=== PATIENT | female | born 1980 | race Caucasian/White ===

== ENCOUNTER 2019-05-16 12:05 | Emergency (ER) | payer OTHER, SELFPAY ==
[2019-05-16 12:10] VITALS: BP 122/74; PULSE 110; RESP 24; TEMP 37.8; O2SAT 99
--- NOTE | 2019-05-16 12:19 | ED.URI ---
HPI - URI/Sore Throat General Chief Complaint: Upper Respiratory Infection Stated Complaint: cough and chest congest w/chills Time Seen by Provider: 05/16/19 12:20 Source: patient and RN notes reviewed Mode of arrival: ambulatory Limitations: no limitations History of Present Illness HPI Narrative: 39-year-old female who presents to [facility] care with complaints of 2 days of cough, chills, fevers, nasal congestion with drainage. Patient states that she has had some sinus drainage for the past 2 weeks but symptoms have increased in the past 2 days to include cough, which has been so hard and frequent that her chest hurts, fevers, body aches.Patient states that she has had yellow sputum with some blood tinged mucous. Patient states that she has been taking Ibuprofen OTC for her symptoms. MD elicited complaint: fever, cough, rhinorrhea and nasal congestion Onset (ago): day(s) (2) Consistency: progressively worsening Severity: moderate Description of mucous: yellow and other (streaks of blood at times) Able to tolerate fluids by mouth: Yes Exacerbating factors: swallowing, exertion and deep breaths Relieving factors: nothing Context: sick contacts Associated symptoms: fever, chills, myalgias, rhinorrhea, nasal congestion, sore throat and cough Treatments prior to arrival: ibuprofen Related Data Home Medications Medication Instructions Recorded Confirmed Mirena 05/16/19 levothyroxine 05/16/19 topiramate 05/16/19 Allergies Allergy/AdvReac Type Severity Reaction Status Date / Time codeine Allergy Severe HIVES Verified 05/16/19 12:32 poison sara extract Allergy Unknown Hives / Verified 02/18/18 15:34 Red Face poison oak extract Allergy Unknown Hives / Verified 02/18/18 15:34 Red Face poison sumac extract Allergy Unknown Hives / Verified 02/18/18 15:34 Red Face Review of Systems Review of Systems: Narrative: CONSTITUTIONAL:Positive fever, chills, or sweats. EYES: Denies visual changes, redness, or discharge. ENT: positive rhinorrhea, congestion, sore throat, no otalgia. CARDIOVASCULAR: reports chest pain with cough,no palpitations, or edema. RESPIRATORY: positive cough no dyspnea. GASTROINTESTINAL: Denies abdominal pain, nausea, vomiting, or diarrhea. GENITOURINARY: Denies dysuria or hematuria. SKIN: Denies rash or itching. MUSCULOSKELETAL: Denies back pain, joint pain, or myalgia. NEUROLOGIC: Denies headache, numbness, or weakness. PSYCHIATRIC:positive anxiety or depression. All systems reviewed & are unremarkable except as noted in HPI and below PMFSH Past Medical History Medical History (Updated 05/17/19 @ 00:00 by Rohith Daemon) Anxiety and depression Bipolar 1 disorder Hypothyroid Migraines Surgical History Surgical History (Updated 05/16/19 @ 12:28 by Niki Kat NP) H/O arthroscopy of right knee History of cervical spinal surgery S/P foot surgery, right Social History Social History Smoking status: Former smoker Smoking end date: 03/11/10 Alcohol intake: never Gender identity (if verbalized by the patient): Female Comments At time of signature, agree with nursing past medical, surgical, social history. There is no relevant family history pertinent to the presenting complaint Exam Narrative: Exam Narrative: GENERAL: ill-appearing, well-nourished, and in no acute distress. HEAD: Normocephalic, atraumatic. EYES: PERRLA and EOMI. ENT: Nares red, yellow tinged rhinorrhea no epistaxis. Mucous membranes moist. TMs normal with good light reflex, throat red no exudates or lesions, mild tonsillar swelling NECK: Supple.no lymphadenopathy CHEST: Clear to auscultation. No respiratory distress. Cough SAO2 99% on room air HEART: Regular rate and rhythm. No murmur heard. Normal peripheral pulses. ABDOMEN: Soft, nontender, nondistended, normal active bowel sounds. EXTREMITIES: Normal range of motion. No edema. SKIN: Warm, dry, no rash. NEURO: No focal deficits. Alert and orien
== END 2019-05-16 12:59 | disposition home or self-care (01) ==
PROVIDERS: Emergency Provider Registered Nurse
DX: J11.1 Influenza due to unidentified influenza virus with other respiratory manifestations (principal)
CPT/HCPCS: 87081; 87804; 87880; 99213; G0463

== ENCOUNTER 2019-05-27 15:50 | Emergency (ER) | payer OTHER, SELFPAY ==
--- NOTE | ~2019-05-27 | XR_ITS ---
EXAMINATION: XR chest 2V DATE: 05/27/2019 16:17 INDICATION: Cough and fever TECHNIQUE: PA and lateral views of the chest are obtained. COMPARISON: 05/09/2017 FINDINGS: The lungs are free of acute opacities. There is no pleural effusion or pneumothorax. The ca rdiomediastinal silhouette is normal. There is mild thoracic spondylosis. IMPRESSION: 1. No acute cardiopulmonary abnormality. Reviewed, dictated and finalized at location A.
[2019-05-27 16:01] VITALS: RESP 18
[2019-05-27 16:11] VITALS: BP 146/68; PULSE 93; RESP 20; TEMP 37.1; O2SAT 100
--- NOTE | 2019-05-27 17:40 | ED.URI ---
HPI - URI/Sore Throat General Chief Complaint: Upper Respiratory Infection Stated Complaint: cough, congestion, fever, sore throat, had flu A Time Seen by Provider: 05/27/19 16:12 History of Present Illness HPI Narrative: 39-year-old female presents emergency department with ongoing symptoms after diagnosis of influenza A 2 weeks ago. Patient reports continued cough, sore throat, feeling exhausted, voice loss. She reports other members of her family had influenza A as well but have all recovered. She denies any prior travel or exposure to COVID-19 within the past several weeks. She is taking [id number] cough medication and ibuprofen without relief. She denies any fever or chills or new symptoms. She called her primary care doctor for reevaluation today and was sent to the emergency department. Related Data Home Medications Medication Instructions Recorded Confirmed Mirena 05/16/19 levothyroxine 05/16/19 topiramate 05/16/19 Allergies Allergy/AdvReac Type Severity Reaction Status Date / Time codeine Allergy Severe HIVES Verified 05/27/19 16:04 poison sara extract Allergy Unknown Hives / Verified 05/27/19 16:04 Red Face poison oak extract Allergy Unknown Hives / Verified 05/27/19 16:04 Red Face poison sumac extract Allergy Unknown Hives / Verified 05/27/19 16:04 Red Face Review of Systems Review of Systems: Narrative: CONSTITUTIONAL: Denies fever, chills, or sweats. EYES: Denies visual changes, redness, or discharge. ENT: Reports rhinorrhea, sore throat. CARDIOVASCULAR: Denies chest pain, palpitations, or edema. RESPIRATORY: Reports cough with coughing spells , denies shortness of breath. GASTROINTESTINAL: Denies abdominal pain, nausea, vomiting, or diarrhea. GENITOURINARY: Denies dysuria or hematuria. SKIN: Denies rash or itching. MUSCULOSKELETAL: Denies back pain, joint pain, or myalgia. NEUROLOGIC: Denies headache, numbness, or weakness. PSYCHIATRIC: Denies anxiety or depression. [facility] Past Medical History Medical History (Updated 05/27/19 @ 18:03 by ZARINA Lundy) Anxiety and depression Bipolar 1 disorder Hypothyroid Migraines Surgical History Surgical History (Updated 05/16/19 @ 12:28 by Niki L. North, [employer]) H/O arthroscopy of right knee History of cervical spinal surgery S/P foot surgery, right Social History Social History Smoking status: Former smoker Smoking end date: 03/11/10 Alcohol intake: never Gender identity (if verbalized by the patient): Female Exam Narrative: Exam Narrative: GENERAL: Appears uncomfortable HEAD: Normocephalic, atraumatic. EYES: sclera anicteric ENT: Nares clear, clear bilat nasal rhinorrhea, no epistaxis. Mucous membranes moist. Posterior pharynx erythematic, no exudates, no palatal petechiae NECK: Supple.no cervical LAD CHEST: Clear to auscultation. No respiratory distress. HEART: Regular rate and rhythm. No murmur heard. Normal peripheral pulses. ABDOMEN: Soft, nontender, nondistended, normal active bowel sounds. EXTREMITIES: Normal range of motion. No edema. SKIN: Warm, dry, no rash. NEURO: No focal deficits. Alert and oriented x3. PSYCH: Normal mood and affect. Course Vital Signs Vital signs: Vital Signs Respiratory Rate 18 05/27/19 16:01 Temperature 37.1 C 05/27/19 16:11 Pulse Rate 93 05/27/19 16:11 Respiratory Rate 20 05/27/19 16:11 Blood Pressure 146/68 H 05/27/19 16:11 Pulse Oximetry 100 05/27/19 16:11 MDM - URI/Sore Throat MDM Narrative Medical decision making narrative: Pt was diagnosed with influenza A 2 weeks ago along with several other family members. Patient reports that other family members have improved but she has not. Given chest x-ray without pneumonia or other acute process this is likely postinfectious cough. She remains afebrile and without new symptoms. Her main complaint today is ongoing cough. Patient had previously been given a prescription for Meggan
== END 2019-05-27 18:20 | disposition home or self-care (01) ==
DX: R05 Cough (principal); F41.9 Anxiety disorder, unspecified; F32.9 Major depressive disorder, single episode, unspecified; E03.9 Hypothyroidism, unspecified
CPT/HCPCS: 71046; 87804; 99283

== ENCOUNTER 2021-01-01 11:12 | Emergency (ER) | payer OTHER, SELFPAY ==
--- NOTE | ~2021-01-01 | XR_ITS ---
EXAMINATION: XR chest 2V DATE: 01/01/2021 11:48 INDICATION: Cough and shortness of breath TECHNIQUE: Frontal and lateral views of the chest are obtained COMPARISON: 05/27/2019 FINDINGS: The lungs are free of acute opacities. There is no pleural effusion or pneumothorax. The ca rdiomediastinal silhouette is normal. There is moderate thoracic spondylosis. IMPRESSION: 1. No acute cardiopulmonary abnormality. Reviewed, dictated and finalized at location A.
[2021-01-01 11:23] VITALS: BP 146/82; PULSE 95; RESP 16; TEMP 37.9; O2SAT 98
--- NOTE | 2021-01-01 11:49 | ED.GENADULT ---
HPI - General Adult General Chief complaint: Upper Respiratory Infection Stated complaint: Chest Congestion/Cough/Fever Time Seen by Provider: 01/01/21 11:49 Source: patient Mode of arrival: ambulatory Limitations: no limitations History of Present Illness HPI narrative: 40-year-old female patient presents to the [facility] with complaints of chest congestion, cough fever that started 3 days ago. 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 Patient states that yesterday her symptoms got increasingly worse with fever, chills cough and chest congestion. Patient is vaccinated for Covid with the Moderna. Related Data Home Medications Medication Instructions Recorded Confirmed Mirena 05/16/19 levothyroxine 05/16/19 topiramate 05/16/19 topiramate 50 mg PO BID 01/01/21 01/01/21 Allergies Allergy/AdvReac Type Severity Reaction Status Date / Time codeine Allergy Severe HIVES Verified 05/27/19 16:04 poison sara extract Allergy Unknown Hives / Verified 05/27/19 16:04 Red Face poison oak extract Allergy Unknown Hives / Verified 05/27/19 16:04 Red Face poison sumac extract Allergy Unknown Hives / Verified 05/27/19 16:04 Red Face Review of Systems Review of Systems: CONSTITUTIONAL: Positive fever, chills, denies sweats. EYES: Denies visual changes, redness, or discharge. ENT: Positive rhinorrhea, congestion, denies sore throat, or otalgia. CARDIOVASCULAR: Denies chest pain, palpitations, or edema. RESPIRATORY: Positive cough, denies dyspnea. GASTROINTESTINAL: Denies abdominal pain, nausea, vomiting, or diarrhea. GENITOURINARY: Denies dysuria or hematuria. SKIN: Denies rash or itching. MUSCULOSKELETAL: Denies back pain, joint pain, or myalgia. NEUROLOGIC: Positive headache, denies numbness, or weakness. PSYCHIATRIC: Denies anxiety or depression. [facility] Past Medical History Medical History Anxiety and depression Bipolar 1 disorder Hypothyroid Migraines Surgical History Surgical History H/O arthroscopy of right knee History of cervical spinal surgery S/P foot surgery, right Social History Social History Smoking status: Former smoker Smoking end date: 03/11/10 Alcohol intake: never Gender identity (if verbalized by the patient): Female Comments At the time of my signature I agree with nursing past medical history, surgical, social, and family history. There is no relevant family history pertinent to the presenting complaint. Exam Narrative: GENERAL: ill-appearing, well-nourished, and in no acute distress. HEAD: Normocephalic, atraumatic. EYES: PERRLA and EOMI. ENT: Nares clear, no rhinorrhea or epistaxis. Mucous membranes moist. Posterior pharynx no erythema, tonsillar edema, exudates or lesions present. Bilateral TMs are clear. NECK: Supple. No lymphadenopathy CHEST: Clear to auscultation. No respiratory distress. HEART: Regular rate and rhythm. No murmur heard. Normal peripheral pulses. ABDOMEN: Soft, nontender, nondistended, normal active bowel sounds. EXTREMITIES: Normal range of motion. No edema. SKIN: Warm, dry, no rash. NEURO: No focal deficits. Alert and oriented x3. Course Vital Signs Vital signs: Vital Signs Temperature 37.9 C H 01/01/21 11:23 Pulse Rate 95 01/01/21 11:23 Respiratory Rate 16 01/01/21 11:23 Blood Pressure 146/82 H 01/01/21 11:23 Pulse Oximetry 98 01/01/21 11:23 Temperature 37.9 C H 01/01/21 11:23 Pulse Rate 95 01/01/21 11:23 Respiratory Rate 16 01/01/21 11:23 Blood Pressure 146/82 H 01/01/21 11:23 Pulse Oximetry 98 01/01/21 11:23 Vital signs reviewed The patient has been informed that they may have pre-hypertension or Hypertension based on a BP reading in the department. I recommend t
--- NOTE | 2021-01-01 12:04 | ED.GENADULT ---
HPI - General Adult General Chief complaint: Upper Respiratory Infection Stated complaint: Chest Congestion/Cough/Fever Time Seen by Provider: 01/01/21 11:49 Source: patient Mode of arrival: ambulatory Limitations: no limitations Related Data Home Medications Medication Instructions Recorded Confirmed Mirena 05/16/19 levothyroxine 05/16/19 topiramate 05/16/19 topiramate 50 mg PO BID 01/01/21 01/01/21 Allergies Allergy/AdvReac Type Severity Reaction Status Date / Time codeine Allergy Severe HIVES Verified 05/27/19 16:04 poison sara extract Allergy Unknown Hives / Verified 05/27/19 16:04 Red Face poison oak extract Allergy Unknown Hives / Verified 05/27/19 16:04 Red Face poison sumac extract Allergy Unknown Hives / Verified 05/27/19 16:04 Red Face PMFSH Past Medical History Medical History Anxiety and depression Bipolar 1 disorder Hypothyroid Migraines Surgical History Surgical History H/O arthroscopy of right knee History of cervical spinal surgery S/P foot surgery, right Social History Social History Smoking status: Former smoker Smoking end date: 03/11/10 Alcohol intake: never Gender identity (if verbalized by the patient): Female Course Reevaluation(s) Reevaluation #1: Chest x-ray is clear as well as her breath sounds are clear. Discussed with patient the we will go ahead and discharge her home she can use symptomatic relief for [id number] at this time however I would discuss with her doctor if she might be a candidate for monoclonal antibodies if she is at high risk at all for further treatment. Patient is aware the plan of care at this time denies any other questions or concerns. Date: 01/01/21 Time: 12:04 Vital Signs Vital signs: Vital Signs Temperature 37.9 C H 01/01/21 11:23 Pulse Rate 95 01/01/21 11:23 Respiratory Rate 16 01/01/21 11:23 Blood Pressure 146/82 H 01/01/21 11:23 Pulse Oximetry 98 01/01/21 11:23 Temperature 37.9 C H 01/01/21 11:23 Pulse Rate 95 01/01/21 11:23 Respiratory Rate 16 01/01/21 11:23 Blood Pressure 146/82 H 01/01/21 11:23 Pulse Oximetry 98 01/01/21 11:23 Medical Decision Making Vital Signs Vital Signs: Vital Signs Temperature 37.9 C H 01/01/21 11:23 Pulse Rate 95 01/01/21 11:23 Respiratory Rate 16 01/01/21 11:23 Blood Pressure 146/82 H 01/01/21 11:23 Pulse Oximetry 98 01/01/21 11:23 Temperature 37.9 C H 01/01/21 11:23 Pulse Rate 95 01/01/21 11:23 Respiratory Rate 16 01/01/21 11:23 Blood Pressure 146/82 H 01/01/21 11:23 Pulse Oximetry 98 01/01/21 11:23 Lab Data Lab results narrative: [address] [id number] XRay ReportSigned Patient: Talia Corrales LDOB: 1980MR#: [id number]/Sex: 40 / FAcct:[id number]: EXPBETH ADM Date: 01/01/21Attending Dr: Ordering Physician: Jessika Candelaria APN Date of Service: 01/01/21 Procedure(s): XR chest 2V Accession Number(s): [id number] cc: Jessika Candelaria APN~ EXAMINATION: XR chest 2V DATE: 01/01/2021 11:48 INDICATION: Cough and shortness of breath TECHNIQUE: Frontal and lateral views of the chest are obtained COMPARISON: 05/27/2019 FINDINGS: The lungs are free of acute opacities. There is no pleural effusion or pneumothorax. The cardiomediastinal silhouette is normal. There is moderate thoracic spondylosis. IMPRESSION: 1. No acute cardiopulmonary abnormality. Reviewed, dictated and finalized at location A. Dictated By: Zaid Barbosa MD 01/01/21 1156 Signed By: <Electronically signed by Zaid Barbosa MD in [place]>01/01/21 1200 Discharge Plan Discha
== END 2021-01-01 12:11 | disposition home or self-care (01) ==
PROVIDERS: Emergency Provider Nurse Practitioner Family
DX: U07.1 COVID-19 (principal); Z87.891 Personal history of nicotine dependence
CPT/HCPCS: 71046; 87426; 99213; C9803; G0463

== ENCOUNTER 2021-12-06 13:11 | Emergency (ER) | payer OTHER, SELFPAY ==
--- NOTE | ~2021-12-06 | XR_ITS ---
EXAMINATION: XR chest 2V 12/06/2021 13:30 INDICATION: Cough. Midline chest pain. Congestion. PROCEDURE: 2 view chest COMPARISON: Comparison to multiple prior studies sequentially, with oldest reviewed study dated 03/2017. FINDINGS: The lungs are clear. The cardiomediastinal silhouette is within normal limits. There are no pleural effusions. There is no pneumothorax suspected. IMPRESSION: 1: NO ACUTE CARDIOPULMONARY DISEASE. Reviewed, dictated and finalized at location B.
[2021-12-06 13:13] VITALS: BP 134/78; PULSE 56; RESP 16; TEMP 36.6; O2SAT 100
[2021-12-06 13:20] VITALS: BP 142/93; PULSE 66; RESP 13; O2SAT 100; O2SAT 98
--- NOTE | 2021-12-06 13:22 | ED.URI ---
HPI - URI/Sore Throat General Chief Complaint: Upper Respiratory Infection Stated Complaint: chest pain with movement/coughing Time Seen by Provider: 12/06/21 13:15 History of Present Illness HPI Narrative: 41-year-old female presents the emergency room for evaluation of chest tightness that is worse when she moves and when attempting to take a deep breath. Patient states the symptoms began this morning. Endorses a recent history of sinus congestion, postnasal drip, nonproductive cough, and sneezing. Patient states she was taking [id number] Nataliya-Brainard along with ibuprofen to alleviate her symptoms. 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 Denies fever. Denies chest pain, dizziness, nausea or vomiting or radiating pain. Related Data Home Medications Medication Instructions Recorded Confirmed Mirena 05/16/19 levothyroxine 112 mcg PO DAILY 05/16/19 01/01/21 topiramate 100 mg PO BID 05/16/19 01/01/21 topiramate 50 mg tablet 50 mg PO BID 01/01/21 01/01/21 Allergies Allergy/AdvReac Type Severity Reaction Status Date / Time codeine Allergy Severe HIVES Verified 12/06/21 13:21 poison sara extract Allergy Unknown Hives / Verified 12/06/21 13:21 Red Face poison oak extract Allergy Unknown Hives / Verified 12/06/21 13:21 Red Face poison sumac extract Allergy Unknown Hives / Verified 12/06/21 13:21 Red Face Review of Systems Review of Systems: CONSTITUTIONAL: Denies fever, chills, or sweats. EYES: Denies visual changes, redness, or discharge. ENT: Reports rhinorrhea, congestion, sore throat CARDIOVASCULAR: Reports chest tenderness RESPIRATORY: Reports cough GASTROINTESTINAL: Denies abdominal pain, nausea, vomiting, or diarrhea. GENITOURINARY: Denies dysuria or hematuria. SKIN: Denies rash or itching. MUSCULOSKELETAL: Denies back pain, joint pain, or myalgia. NEUROLOGIC: Denies headache, numbness, dizziness, or weakness. PSYCHIATRIC: Denies anxiety or depression. [facility] Past Medical History Medical History Anxiety and depression Bipolar 1 disorder Hypothyroid Migraines Surgical History Surgical History H/O arthroscopy of right knee History of cervical spinal surgery S/P foot surgery, right Social History Social History Smoking status: Former smoker Smoking end date: 03/11/10 Alcohol intake: never Gender identity (if verbalized by the patient): Female Exam Narrative: GENERAL: Well-appearing, well-nourished, no physical limitations, and in no acute distress. HEAD: Normocephalic, atraumatic. EYES: Conjunctivae normal, PERRLA and EOMI. ENT: External nose normal, Nares clear, no rhinorrhea or epistaxis. Mucous membranes moist. Oropharynx without tonsillar hypertrophy exudate or other lesions. External ears normal, bilateral TMs normal bilaterally NECK: Supple. No adenopathy or masses. CHEST: Clear to auscultation. No respiratory distress. No wheezes rales or rhonchi. No tenderness. HEART: Regular rate and rhythm. No murmur heard. Normal peripheral pulses. EXTREMITIES: Normal range of motion. No edema. No clubbing or cyanosis SKIN: Warm, dry, no rash. No noted wounds NEURO: No focal deficits. Alert and oriented x3. MAEW. CN's II-XI intact bilaterally, normal gait PSYCH: Cooperative. Normal mood and affect. Course Vital Signs Vital signs: Vital Signs Temperature 36.6 C 12/06/21 13:13 Pulse Rate 56 L 12/06/21 13:13 Respiratory Rate 16 12/06/21 13:13 Blood Pressure 134/78 12/06/21 13:13 Pulse Oximetry 100 12/06/21 13:13 Oxygen Delivery Room Air 12/06/21 13:13 Temperature 36.6 C 12/06/21 13:13 Pulse Rate 66 12/06/21 15:40 Respiratory Rate 20 12/06/21 15:40 Blood Pressure 118/72 12/06/21 14:36 Pulse Oxime
[2021-12-06 14:36] VITALS: BP 118/72; PULSE 53; RESP 21; O2SAT 99
[2021-12-06 15:08] LABS: Influenza A QL RT-PCR Negative (Negative); Influenza B QL RT-PCR Negative (Negative); SARS-CoV-2 RNA PCR Negative
[2021-12-06] MEDS: ALBUTEROL SULFATE NEB 2.5 MG/3 ML INH INHALATION (15:21)
[2021-12-06] MEDS: IPRATROPIUM BR 0.02% INH SOLN 0.5 MG/2.5 ML VIAL INHALATION (15:21)
[2021-12-06 15:23] VITALS: PULSE 54; RESP 16
[2021-12-06 15:40] VITALS: PULSE 66; RESP 20
[2021-12-06 16:03] VITALS: BP 118/69; PULSE 68; RESP 20; TEMP 36.8; O2SAT 99
== END 2021-12-06 16:04 | disposition home or self-care (01) ==
PROVIDERS: Emergency Provider Nurse Practitioner Family
DX: J06.9 Acute upper respiratory infection, unspecified (principal); R09.1 Pleurisy; Z20.822 Contact with and (suspected) exposure to COVID-19; Z87.891 Personal history of nicotine dependence; E03.9 Hypothyroidism, unspecified
CPT/HCPCS: 71046; 87502; 94640; 96372; 99283; C9803; J1100; U0003; U0005

== ENCOUNTER 2022-02-21 09:18 | Emergency (ER) | payer OTHER, SELFPAY ==
[2022-02-21 09:25] VITALS: BP 131/85; PULSE 82; RESP 16; TEMP 37.7; O2SAT 99
--- NOTE | 2022-02-21 09:53 | ED.EYEPROB ---
HPI - Eye Problem General Chief complaint: Eye Problems Stated complaint: Eye Problem Time Seen by Provider: 02/21/22 09:43 Source: patient Mode of arrival: ambulatory Limitations: no limitations History of Present Illness HPI Narrative: 41-year-old female presented for complaint of left eye irritation and drainage. She states it was crusted shut this morning. 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 Patient denies photophobia, vision changes, headache or dizziness. She also endorses sinus congestion and postnasal drainage with a sore throat and cough over the last few days. She is not taking anything but tylenol for the symptoms. Denies shortness of breath, wheezing, nausea, vomiting, fever chills. MD chief complaint: eye pain Related Data Home Medications Medication Instructions Recorded Confirmed Mirena 05/16/19 levothyroxine 112 mcg PO DAILY 05/16/19 01/01/21 topiramate 100 mg PO BID 05/16/19 01/01/21 topiramate 50 mg tablet 50 mg PO BID 01/01/21 01/01/21 Allergies Allergy/AdvReac Type Severity Reaction Status Date / Time codeine Allergy Severe HIVES Verified 12/06/21 13:21 poison sara extract Allergy Unknown Hives / Verified 12/06/21 13:21 Red Face poison oak extract Allergy Unknown Hives / Verified 12/06/21 13:21 Red Face poison sumac extract Allergy Unknown Hives / Verified 12/06/21 13:21 Red Face Review of Systems Review of Systems: ROS per HPI All systems reviewed & are unremarkable except as noted in HPI and below PMFSH Past Medical History Medical History Anxiety and depression Bipolar 1 disorder Hypothyroid Migraines Surgical History Surgical History H/O arthroscopy of right knee History of cervical spinal surgery S/P foot surgery, right Social History Social History Smoking status: Former smoker Smoking end date: 03/11/10 Alcohol intake: never Gender identity (if verbalized by the patient): Female Comments At time of signature, I have reviewed and agree with nursing past medical, surgical, social and family history unless otherwise noted. Please see nursing chart for further information. There is no relevant family history pertinent to the presenting complaint Exam Narrative: GENERAL: Well-appearing HEAD: Normocephalic, atraumatic. EYES: left conjunctival injection, mild yellow drainage; no eye lid swelling. EOMI. Lid eversion showed no FB ENT: Mucous membranes pink and moist. No rhinorrhea. TMs normal bilaterally. Throat normal. Uvula midline. CHEST: Clear to auscultation. HEART: Regular rate and rhythm. ABDOMEN: Soft, nontender, nondistended SKIN: Warm, dry, no rash. Normal skin turgor. NEURO: No focal deficits. Alert and oriented x3 Course Course Emergency Course: Patient is aware of diagnosis, understands and agrees to treatment plan. Anticipatory guidance given. Patient agrees to follow-up as directed and is aware of reasons to seek care at the emergency department. Portions of this record may have been created with voice recognition software Level of Care: Express Care Visit Vital Signs Vital signs: Vital Signs Temperature 99.8 F H 02/21/22 09:25 Pulse Rate 82 02/21/22 09:25 Respiratory Rate 16 02/21/22 09:25 Blood Pressure 131/85 02/21/22 09:25 Pulse Oximetry 99 02/21/22 09:25 Oxygen Delivery Room Air 02/21/22 09:25 Temperature 99.8 F H 02/21/22 09:25 Pulse Rate 82 02/21/22 09:25 Respiratory Rate 16 02/21/22 09:25 Blood Pressure 131/85 02/21/22 09:25 Pulse Oximetry 99 02/21/22 09:25 Oxygen Delivery Room Air 02/21/22 09:25 MDM - Eye Problem MDM Narrative Medical decision making narrative: treatment for bacterial conjunctivitis. Advised supportive measures for URI.
== END 2022-02-21 10:01 | disposition home or self-care (01) ==
PROVIDERS: Emergency Provider Nurse Practitioner Family; PCP Nurse Practitioner Family
DX: H10.9 Unspecified conjunctivitis (principal); Z87.891 Personal history of nicotine dependence; E03.9 Hypothyroidism, unspecified
CPT/HCPCS: 99213; G0463

== ENCOUNTER 2022-03-02 09:28 | Emergency (ER) | payer OTHER, SELFPAY ==
[2022-03-02 09:34] VITALS: BP 130/93; PULSE 94; RESP 26; TEMP 36.4; O2SAT 100
--- NOTE | 2022-03-02 09:58 | ED.URI ---
HPI - URI/Sore Throat General Chief Complaint: Upper Respiratory Infection Stated Complaint: sore throat, cough, chest pain,headache Time Seen by Provider: 03/02/22 09:55 Source: patient, RN notes reviewed and old records reviewed Mode of arrival: ambulatory Limitations: no limitations History of Present Illness HPI Narrative: 41 year old female who presents to [facility] with 2 week duration of illness which started with sore throat, nasal drainage and cough which was productive. Patient reports that cough has become tighter for the past few days with some body aches, is hoarse, can't lay down at night without coughing fits. Patient reports that she has noted some blood tinged sputum that clears. Patient reports that she has had COVID vaccinations and booster, has not had flu shot.Has been taking Tylenol and Ibuprofen and allergy medications. MD elicited complaint: cough, sore throat, rhinorrhea, nasal congestion and sinus pain Pertinent past history: seasonal allergies Pain scale (0-10): 6 Treatments prior to arrival: acetaminophen, ibuprofen and other (Allergy medication) Related Data Home Medications Medication Instructions Recorded Confirmed levothyroxine 13 mcg capsule mcg PO 03/02/22 Allergies Allergy/AdvReac Type Severity Reaction Status Date / Time codeine Allergy Severe HIVES Verified 03/02/22 09:36 poison sara extract Allergy Unknown Hives / Verified 03/02/22 09:36 Red Face poison oak extract Allergy Unknown Hives / Verified 03/02/22 09:36 Red Face poison sumac extract Allergy Unknown Hives / Verified 03/02/22 09:36 Red Face Review of Systems Review of Systems: CONSTITUTIONAL: Denies malaise, chills, sweats, or fever. EYES: Denies visual changes, redness, or discharge. ENT: Reports rhinorrhea, congestion, sinus pain,no otalgia positive sore throat, hoarseness CARDIOVASCULAR: Denies chest pain, palpitations, or edema. RESPIRATORY: Reports cough.? Denies dyspnea. GASTROINTESTINAL: Denies abdominal pain, nausea, vomiting, diarrhea SKIN: Denies rash or itching. MUSCULOSKELETAL:reports myalgia. NEUROLOGIC: reports headache. All systems reviewed & are unremarkable except as noted in HPI and below PMFSH Past Medical History Medical History Anxiety and depression Bipolar 1 disorder Hypothyroid Migraines Surgical History Surgical History H/O arthroscopy of right knee History of cervical spinal surgery S/P foot surgery, right Social History Social History Smoking status: Former smoker Smoking end date: 03/11/10 Alcohol intake: never Gender identity (if verbalized by the patient): Female Comments At time of signature, agree with nursing past medical, surgical, social and family history. There is no relevant family history pertinent to the presenting complaint Exam Narrative: GENERAL: Well-appearing, well-nourished, and in no acute distress. HEAD: Normocephalic EYES: PERRLA, conjunctivae clear ENT: Nares clear, turbinates edematous and erythematous, clear discharge. Mucous membranes moist. TM pearly lopez with dull light reflex bilaterally; no tragal tenderness. Oropharynx erythematous without lesions. Tonsils not enlarged and without exudate, no drooling, positive for hoarseness, no trismus, uvula midline.post nasal drainage and headache. NECK: Supple. No lymphadenopathy CHEST: Clear to auscultation, breath sounds equal. No wheezing, rhonchi, rales, or stridor. No respiratory distress, speaks in full sentences.harsh cough SAO2 100% on room air HEART: Regular rate and rhythm. No murmur heard. SKIN: Warm, dry, no rash. NEURO: Alert and oriented x3. PSYCH: Normal mood and affect Course Course Emergency Course: Patient is aware of diagnosis, understands and agrees to treatment plan.? A
== END 2022-03-02 10:13 | disposition home or self-care (01) ==
PROVIDERS: Emergency Provider Registered Nurse; PCP Nurse Practitioner Family
DX: J06.9 Acute upper respiratory infection, unspecified (principal); R05.9 Cough, unspecified; J02.9 Acute pharyngitis, unspecified; Z87.891 Personal history of nicotine dependence; E03.9 Hypothyroidism, unspecified
CPT/HCPCS: 99213; G0463

== ENCOUNTER → 2022-09-24 11:12 | Outpatient (CLI) | payer BC, SELFPAY ==
--- NOTE | ~2022-09-24 | MM_ITS ---
EXAMINATION: MM screening baltazar BI w mely HISTORY: Screening TECHNIQUE: Craniocaudal and mediolateral oblique 3-D tomosynthesis images were obtained and synthetic 2-D images were generated. CAD analysis was submitted and interpreted. COMPARISON: No prior mammogram is available for comparison at this institution. BREAST PARENCHYMAL COMPOSITION: There are scattered areas of fibroglandular density. FINDINGS: There is no evidence of suspicious mass, calcification, or architectural distortion to sugg est malignancy in either breast. There has been no suspicious interval change. IMPRESSION: 1. No mammographic evidence of malignancy. 2. Recommend routine screening mammography in one year. BI-RADS Category 1: Negative Reviewed, dictated and finalized at location A.
== END ==
PROVIDERS: PCP Nurse Practitioner Obstetrics & Gynecology; Visit Provider Nurse Practitioner Obstetrics & Gynecology
DX: Z12.31 Encounter for screening mammogram for malignant neoplasm of breast (principal)
CPT/HCPCS: 77063; 77067

== ENCOUNTER 2024-01-15 10:35 | Emergency (ER) | payer BC, SELFPAY ==
--- NOTE | ~2024-01-15 | CT_ITS ---
CT abdomen pelvis w con Ordering provider: Maura Giordano MD History: 43 years Female with . LLQ pain . Comparison: None. Technique: CT abdomen and pelvis with IV and without oral contrast. Automated exposure control and it erative reconstruction technique were employed. The dose-length product was 1014.86 mGy-cm. 100 mL Om nipaque 350 was given IV. Findings: VISUALIZED LOWER CHEST: Dependent atelectatic changes in the right lung base. UPPER ABDOMINAL ORGANS: Liver: Normal. Gallbladder: Normal. Spleen: Normal. Stomach/duodenum: Small sliding hiatus hernia. Pancreas: Normal. Adrenals: Small left adrenal adenoma. Kidneys: Tiny cyst in the left kidney lower pole. PELVIC ORGANS: The bladder is underfilled. Uterus: IUD is seen in the uterus.. Left ovarian cyst measuring 2.2 cm.. BOWEL AND MESENTERY: Colon: No evidence of diverticulitis. Fecal material is loaded in the colon. No evidence of appendici tis. Small Bowel: Normal. No obstruction. Peritoneum/mesentery: No free air or free fluid. No mesenteric lymphadenopathy. RETROPERITONEUM: Normal aorta. No retroperitoneal lymphadenopathy. MUSCULOSKELETAL: Superficial soft tissues: Small fat-containing umbilical hernia. Otherwise, The superficial soft tiss ues are normal. Bones: Degenerative disc disease at the level of L5-S1. Otherwise, Normal spine. Right sacroiliitis. IMPRESSION: 1. No evidence of appendicitis, diverticulitis or intestinal obstruction. 2. Left ovarian cyst. 3. Constipation. 4. Small sliding hiatus hernia. Reviewed, dictated and finalized at location A. [employer]
[2024-01-15 10:48] VITALS: BP 129/89; PULSE 61; RESP 18; TEMP 36.5; O2SAT 100
[2024-01-15 11:19] LABS: BEDSIDEPREGUCG Negative (Negative)
[2024-01-15 11:25] LABS: Basophils Absolute Auto 0.1 K/mm3 (0.0-0.1); Basophils Percent Auto 1.1 % (0.2-1.2); Eosinophils Absolute Auto 0.7 K/mm3 (0-0.3); Eosinophils Percent Auto 9.8 % (0-4.4); Hematocrit 40.6 % (37.0-47.0); Hemoglobin 13.5 g/dL (12.0-15.0); Immature Granulocyte Absolute 0.02 K/mm3 (0.00-0.031); Immature Granulocyte Percent A 0.3 % (0-0.5); Lymphocytes Absolute Auto 2.09 K/mm3 (0.9-3.2); Lymphocytes Percent Auto 28.8 % (18.3-44.2); Mean Corpuscular HGB Conc 33.3 g/dl (32-36); Mean Corpuscular Hemoglobin 31.4 pg (26-34); Mean Corpuscular Volume 94.4 fl (80-100); Mean Platelet Volume 9.2 fl (7.4-10.4); Monocytes Absolute Auto 0.8 K/mm3 (0.1-0.6); Monocytes Percent Auto 11.6 % (2.6-8.5); Neutrophils Absolute Auto 3.5 K/mm3 (1.3-6.7); Neutrophils Percent Auto 48.4 % (45.5-73.1); Platelet Count Result 355 k/mm3 (150-375); Red Cell Distribution Width 13.2 % (11.5-14.5); White Blood Count 7.3 K/mm3 (4.5-10.0)
[2024-01-15 11:29] LABS: Add Urine Microscopic? NO; Appearance Urine Clear (Clear); Bilirubin Urine Negative (Negative); Blood Urine Negative (Negative); Color Urine Yellow (Yellow); Glucose Urine UA Negative (Negative); Ketones Urine Negative (Negative); Leukocyte Esterase Ur Negative LEU/UL (Negative); Nitrate Urine Negative (Negative); Protein Urine Negative (Negative); Specific Grav Ur 1.022 (1.001-1.035); Urobilinogen Urine 0.2 mg/dL (<2.0); pH Urine 5.5 (5.0-9.0)
[2024-01-15 11:38] LABS: Alanine Aminotransferase 10 U/L (6-35); Albumin Level 4.2 g/dL (3.5-5.1); Alkaline Phosphatase 59 U/L (38-126); Anion Gap 10 mmol/L (4-12); Aspartate Amino Transferase 13 U/L (14-36); Bilirubin,Total 0.3 mg/dL (0.2-1.3); Blood Urea Nitrogen 14 mg/dL (7-17); Calcium 9.2 mg/dL (8.4-10.2); Carbon Dioxide 20 mmol/L (22-30); Chloride 111 mmol/L (98-107); Estimated CRCL calculation 104 ml/min; Estimated Glomerular Filt Rate > 60; Glucose 85 mg/dL (65-110); Lipase 68 U/L (23-300); Potassium 3.9 mmol/L (3.4-5.0); Sodium 141 mmol/L (137-145)
--- NOTE | 2024-01-15 11:56 | ED.ABDPAIN ---
HPI - Abdominal Pain General Chief Complaint: Abdominal Pain Stated Complaint: abdominal pain Time Seen by Provider: 01/15/24 11:06 History of Present Illness HPI narrative: patient presenting with right lower abdominal pain started today; no n/v/d, f/c. No dysuria. Related Data Home Medications Medication Instructions Recorded Confirmed levothyroxine 13 mcg capsule 112 mcg PO DAILY 03/02/22 01/15/24 cetirizine 10 mg tablet 10 mg PO DAILY 01/15/24 01/15/24 topiramate 100 mg tablet 100 mg PO BID 01/15/24 01/15/24 topiramate 50 mg tablet 50 mg PO BID 01/15/24 01/15/24 Allergies Allergy/AdvReac Type Severity Reaction Status Date / Time codeine Allergy Severe HIVES Verified 01/15/24 10:35 poison sara extract Allergy Unknown Hives / Verified 01/15/24 10:35 Red Face poison oak extract Allergy Unknown Hives / Verified 01/15/24 10:35 Red Face poison sumac extract Allergy Unknown Hives / Verified 01/15/24 10:35 Red Face Review of Systems Review of Systems: All systems reviewed & are unremarkable except as noted in HPI and below PMFSH Past Medical History Medical History Anxiety and depression Bipolar 1 disorder Hypothyroid Migraines Surgical History Surgical History H/O arthroscopy of right knee History of cervical spinal surgery S/P foot surgery, right Social History Social History Smoking status: Former smoker Smoking end date: 03/11/10 Alcohol intake: never Gender identity (if verbalized by the patient): Female Exam Narrative: EXAMINATION OF ORGAN SYSTEMS/BODY AREAS: Constitutional: Vital signs per nursing GENERAL:[No acute distress, non-toxic appearing.] HEAD: Normal with no signs of head trauma. EYES: EOMI, conjunctiva normal ENT: Hearing grossly intact LUNGS: Nonlabored breathing. HEART: [Regular rate and rhythm] ABD: [Soft], slight tenderness to RLQ EXT: Normal range of motion SKIN: [No rashes or lesions.] NEURO: [Alert and oriented x 3. No gross focal sensory or strength deficits.] PSYCH: Normal affect Course Vital Signs Vital signs: Vital Signs Temperature 97.7 F 01/15/24 10:48 Pulse Rate 61 01/15/24 10:48 Respiratory Rate 18 01/15/24 10:48 Blood Pressure 129/89 01/15/24 10:48 Pulse Oximetry 100 01/15/24 10:48 Oxygen Delivery Room Air 01/15/24 10:48 Temperature 97.7 F 01/15/24 10:48 Pulse Rate 61 01/15/24 12:50 Respiratory Rate 18 01/15/24 12:50 Blood Pressure 121/82 01/15/24 12:50 Pulse Oximetry 98 01/15/24 12:50 Oxygen Delivery Room Air 01/15/24 10:48 MDM - Abdominal Pain MDM Narrative Medical decision making narrative: Electronic medical record was reviewed. Patient presented to the ED with complaint of [abdominal pain x1d]. Vitals [were within acceptable limits]. Physical exam revealed [ soft abdomen with some very minimal tenderness to palpation in RLQ]. Based on the patient's history and physical exam, my differential includes but is not limited to [gastritis, gastroenteritis, diverticulitis, appendicitis]. [IV access was established by nursing staff.]. CBC, BMP, lipase, LFTs, bilirubin and alk phos were obtained. Labs were pertinent for unremarkable labs. [Decision was made to obtain a CT-abdomen to evaluate for acute abdominal process. CT-abdomen per radiology interpretation is unremarkable for acute intra-abdominal process, no signs of hydronephrosis, cholecystitis, appendicitis.] There were no witnessed episodes of vomiting in the emergency department. They are not complaining of any new abdominal pain. Repeat examination did not show any significant guarding or rebound. No new tenderness. At this time I do not feel there is any further emergent treatment to be provided. The patient was given strict return precautions, if they are to develop any worsening abdominal pain, vomiting, or blood in the vomit they are to return to the emergency department immediately. Patient verbally acknowledges understanding these directions. [The patient was informed of the above diagnostic test findings.] No further workup is necessary at this time. They will be discharged home [with prescriptions for APAP]. They were advised to follow-up with [their PCP] in 2 days. The patient feels that this is appropriate medical decision making and verbalizes an understanding of the discharge instructions. Lab Data 01/15/24 11:18 01/15/24 11:18 Labs: Lab Results 01/15/24 01/15/24 Range/Units 11:17 11:18 WBC 7.3 (4.5-10.0) K/mm3 RBC 4.30 (4.2-5.4) M/mm3 Hgb 13.5 (12.0-15.0) g/dL Hct 40.6 (37.0-47.0) % MCV 94.4 (80-100) fl MCH 31.4 (26-34) pg MCHC 33.3 (32-36) g/dl RDW 13.2 (11.5-14.5) % Plt Count 355 (150-375) k/mm3 MPV 9.2 (7.4-10.4) fl Immature Gran % (Auto) 0.3 (0-0.5) % Neut % (Auto) 48.4 (45.5-73.1) % Lymph % (Auto) 28.8 (18.3-44.2) % [place] % (Auto) 11.6 H (2.6-8.5) % Eos % (Auto) 9.8 H (0-4.4) % Baso % (Auto) 1.1 (0.2-1.2) % Lymph # (Auto) 2.09 (0.9-3.2) K/mm3 [place] # (Auto) 0.8 H (0.1-0.6) K/mm3 Eos # (Auto) 0.7 H (0-0.3) K/mm3 Baso # (Auto) 0.1 (0.0-0.1) K/mm3 Abs Immat Gran (auto) 0.02 (0.00-0.031) K/mm3 Absolute Neuts (auto) 3.5 (1.3-6.7) K/mm3 Absolute Nucleated RBC 0.000 (0.0-0.012) K/mm3 Nucleated RBC % 0.0 (0.0-0.2) % Sodium 141 (137-145) mmol/L Potassium 3.9 (3.4-5.0) mmol/L Chloride 111 H (98-107) mmol/L Carbon Dioxide 20 L (22-30) mmol/L Anion Gap 10 (4-12) mmol/L BUN 14 (7-17) mg/dL Creatinine 0.70 (0.7-1.0) mg/dL Estim Creat Clear Calc 104 ml/min Estimated GFR > 60 (59 - ) Glucose 85 (65-110) mg/dL Calcium 9.2 (8.4-10.2) mg/dL Total Bilirubin 0.3 (0.2-1.3) mg/dL AST 13 L (14-36) U/L ALT 10 (6-35) U/L Alkaline Phosphatase 59 (38-126) U/L Total Protein 8.0 (6.3-8.2) g/dL Albumin 4.2 (3.5-5.1) g/dL Lipase 68 (23-300) U/L Urine Color Yellow (Yellow) Urine Appearance Clear (Clear) Urine pH 5.5 (5.0-9.0) Ur Specific Otto 1.022 (1.001-1.035) Urine Protein Negative (Negative) mg/dL Urine Glucose (UA) Negative (Negative) mg/dL Urine Ketones Negative (Negative) mg/dL Ur Blood (Man) Negative (Negative) Urine Nitrate Negative (Negative) Urine Bilirubin Negative (Negative) Urine Urobilinogen 0.2 (<2.0) mg/dL Leukocyte Esterase Rfl Negative (Negative) LITTLE/UL POC Urine HCG, Qual Negative (Negative) Imaging Data Radiologist's impression: ITS Impressions Abdomen/Pelvis CT 01/15/24 12:05 IMPRESSION: 1. No evidence of appendicitis, diverticulitis or intestinal obstruction. 2. Left ovarian cyst. 3. Constipation. 4. Small sliding hiatus hernia. Discharge Plan Discharge Clinical Impression: Abdominal pain Patient Disposition: Home, Self-Care Condition: Stable Instructions: Abdominal Pain (ED) Additional Instructions: Please follow up with your doctor; you can always return for any further issues. Prescriptions: New acetaminophen [Tylenol Extra Strength] 500 mg tablet 1,000 mg PO Q6H PRN (Reason: pain) Qty: 50 0RF No Action levothyroxine 13 mcg Capsule 112 mcg PO DAILY cetirizine 10 mg tablet 10 mg PO DAILY topiramate 100 mg tablet 100 mg PO BID topiramate 50 mg tablet 50 mg PO BID Follow-up/Referrals: Sebastian,Ines Longo NP [Non-Staff] - 2 Days
[2024-01-15 12:50] VITALS: BP 121/82; PULSE 61; RESP 18; O2SAT 98
== END 2024-01-15 13:02 | disposition home or self-care (01) ==
PROVIDERS: Emergency Provider Emergency Medicine
DX: R10.31 Right lower quadrant pain (principal); E03.9 Hypothyroidism, unspecified; Z79.899 Other long term (current) drug therapy; Z87.891 Personal history of nicotine dependence
CPT/HCPCS: 36415; 74177; 80053; 81003; 81025; 83690; 85025; 99284; Q9967